=== PATIENT | male | born 1970 | race Caucasian/White ===

== ENCOUNTER 2021-10-18 14:04 | Inpatient (IN) | payer MEDICAID, OTHER ==
[~2021-10-18] VITALS: Ht 162.6 cm; Wt 73.0 kg
[2021-10-18 15:01] LABS: BASOPHILS % (AUTO) 0.9 % (0.0-2.0); EOSINOPHILS % (AUTO) 7.3 % (1.0-6.0); HEMATOCRIT 30.2 % (41-53); HEMOGLOBIN 10.4 g/dL (13.5-17.5); LYMPHOCYTES # (AUTO) 0.8 K/uL (1.0-4.8); LYMPHOCYTES % (AUTO) 11.3 % (22.0-44.0); MEAN CORPUSCULAR HEMOGLOBIN 35.3 pg (26.0-34.0); MEAN CORPUSCULAR HGB CONC 34.3 G/dL (31.0-37.0); MEAN CORPUSCULAR VOLUME 103 fL (80-100); MONOCYTES % (AUTO) 14.3 % (2.0-9.0); NEUTROPHILS # (AUTO) 4.6 K/uL (1.8-7.7); NEUTROPHILS % (AUTO) 66.2 % (40.0-70.0); PLATELET COUNT (AUTO) 188 K/uL (150-450); RED BLOOD CELL COUNT(AUTO) 2.94 MIL/uL (4.50-5.90)
[2021-10-18 15:09] LABS: ANION GAP 8 mmol/L (8-16); CALCIUM, TOTAL 9.8 mg/dL (8.8-10.5); CARBON DIOXIDE 34 mmol/L (22-29); CHLORIDE 99 mmol/L (98-107); GLOMERULAR FILTR. RATE CALC 15 mL/min (>60); GLUCOSE,RANDOM 113 mg/dL (70-110); POTASSIUM 4.1 mmol/L (3.5-5.1); SODIUM SERUM 141 mmol/L (136-145); UREA NITROGEN, BLOOD 14 mg/dL (7-18)
[2021-10-18 15:15] LABS: ALANINE AMINOTRANSFERASE 17 U/L (12-78); ALBUMIN 4.2 g/dL (3.4-5.0); ALKALINE PHOSPHATASE 140 U/L (46-116); ASPARTATE AMINOTRANSFERASE 25 U/L (15-37); TOTAL PROTEIN, SERUM 8.5 g/dL (6.4-8.2)
[2021-10-18 15:59] LABS: COVID AG,FIA SOURCE NASOPHARYNGEAL
[2021-10-18] MEDS: LORazepam 2 MG TABLET PO PRN ×2 (16:18→23:08)
[2021-10-18 18:35] LABS: APPEARANCE,URINE CLEAR (CLEAR); BILIRUBIN,URINE NEGATIVE (NEGATIVE); GLUCOSE, URINE (UA) 100 mg/dL (NEGATIVE); KETONES,URINE NEGATIVE (NEGATIVE); LEUKOCYTE ESTERASE ,URINE NEGATIVE (NEGATIVE); NITRATE,URINE NEGATIVE (NEGATIVE); OCCULT BLOOD,URINE TRACE (NEGATIVE); PROTEIN,URINE SEE CONFIRM (NEGATIVE); UROBILINOGEN,URINE 0.2 mg/dL (<=1.0)
[2021-10-18 18:40] LABS: AMPHET/METH SCREEN,URINE NEGATIVE (NEGATIVE); BARBITURATE SCREEN, URINE NEGATIVE (NEGATIVE); BENZODIAZEPINES SCREEN,URINE NEGATIVE (NEGATIVE); CANNABINOID SCREEN,URINE POSITIVE (NEGATIVE); COCAINE SCREEN,URINE NEGATIVE (NEGATIVE); METHADONE SCREEN, URINE NEGATIVE (NEGATIVE); OPIATE SCREEN,URINE NEGATIVE (NEGATIVE)
[2021-10-18 18:41] LABS: PHENCYCLIDINE SCREEN,URINE NEGATIVE (NEGATIVE)
[2021-10-18 18:45] VITALS: BP 168/94
[2021-10-18 19:02] LABS: SULFOSALICYLIC ACID,URINE 4+ (Negative)
[2021-10-18 19:03] LABS: BACTERIA,URINE None Seen /HPF (None Seen); RBC,URINE 0-2 /HPF (0-2); WBC,URINE 0-2 /HPF (0-5)
[2021-10-19 05:32] LABS: GLUCOMETER DEV NAME(LOC) 3EX.; GLUCOSE,POINT OF CARE 115 MG/DL (70-110)
[2021-10-19] MEDS: CALCIUM ACETATE 667 MG CAPSULE PO SCH ×3 (06:58→16:29)
[2021-10-19] MEDS: AmLODIPine BESYLATE 10 MG TABLET PO SCH (09:11)
[2021-10-19] MEDS: VITAMIN B COMP/VIT C/FOLIC ACID CAPSULE PO SCH (09:12)
[2021-10-19] MEDS: ASPIRIN 81 MG DR TABLET PO SCH (09:12)
[2021-10-19] MEDS: FUROSEMIDE 80 MG TABLET PO SCH (09:13)
[2021-10-19] MEDS: LOSARTAN POTASSIUM 50 MG TABLET PO SCH (09:13)
[2021-10-19] MEDS ORDERED: GuaiFENesin/D-METHORPHAN [SUGAR-FREE] 200-20MG/10 ML SYRUP UDCUP PO PRN (10:45)
[2021-10-19] MEDS ORDERED: DOCUSATE SODIUM 100 MG CAPSULE PO PRN (10:45)
[2021-10-19] MEDS ORDERED: MAG HYDROX/AL HYDROX/SIMETH ES 30 ML SUSPENSION UDCUP PO PRN (10:45)
[2021-10-19] MEDS ORDERED: ONDANSETRON HCL 4 MG TABLET PO PRN (10:45)
[2021-10-19] MEDS ORDERED: NICOTINE 14 MG/24 HOUR PATCH TD PRN (10:45)
[2021-10-19] MEDS ORDERED: LOPERAMIDE HCL 2 MG CAPSULE PO PRN (10:45)
[2021-10-19] MEDS ORDERED: IBUPROFEN 400 MG TABLET PO PRN (10:45)
[2021-10-19] MEDS ORDERED: MAGNESIUM HYDROXIDE SUSPENSION 30 ML UDCUP PO PRN (10:45)
[2021-10-19] MEDS ORDERED: PETROLATUM,WHITE 28 GM JELLY TP PRN (10:45)
[2021-10-19] MEDS ORDERED: CloNIDine HCL 0.1 MG TABLET PO PRN (10:45)
[2021-10-19 13:47] VITALS: BP 172/105
[2021-10-19 16:27] VITALS: BP 163/95
[2021-10-19 16:51] LABS: GLUCOMETER DEV NAME(LOC) 3EX.; GLUCOSE,POINT OF CARE 151 MG/DL (70-110)
[2021-10-19] MEDS: ZOLPIDEM TARTRATE 10 MG TABLET PO PRN (20:32)
[2021-10-19] MEDS: MIRTAZAPINE 15 MG TABLET PO SCH (20:32)
[2021-10-20] VITALS (14 sets, daily range): BP systolic 155–178; BP diastolic 80–114
[2021-10-20 05:31] LABS: GLUCOMETER DEV NAME(LOC) 3EX.; GLUCOSE,POINT OF CARE 113 MG/DL (70-110)
[2021-10-20] MEDS: CALCIUM ACETATE 667 MG CAPSULE PO SCH ×3 (06:36→19:51)
[2021-10-20] MEDS: LOSARTAN POTASSIUM 50 MG TABLET PO SCH (08:50)
[2021-10-20] MEDS: VITAMIN B COMP/VIT C/FOLIC ACID CAPSULE PO SCH (08:50)
[2021-10-20] MEDS: AmLODIPine BESYLATE 10 MG TABLET PO SCH (08:51)
[2021-10-20] MEDS: FUROSEMIDE 80 MG TABLET PO SCH (08:51)
[2021-10-20] MEDS: ASPIRIN 81 MG DR TABLET PO SCH (08:51)
[2021-10-20] MEDS: MIRTAZAPINE 15 MG TABLET PO SCH (20:08)
[2021-10-21] MEDS: ZOLPIDEM TARTRATE 10 MG TABLET PO PRN ×2 (00:04→22:14)
[2021-10-21 06:31] LABS: GLUCOMETER DEV NAME(LOC) 3EX.; GLUCOSE,POINT OF CARE 106 MG/DL (70-110)
[2021-10-21] MEDS: CALCIUM ACETATE 667 MG CAPSULE PO SCH ×3 (06:33→16:15)
[2021-10-21] MEDS: FUROSEMIDE 80 MG TABLET PO SCH (08:46)
[2021-10-21] MEDS: AmLODIPine BESYLATE 10 MG TABLET PO SCH (08:46)
[2021-10-21] MEDS: ASPIRIN 81 MG DR TABLET PO SCH (08:46)
[2021-10-21] MEDS: VITAMIN B COMP/VIT C/FOLIC ACID CAPSULE PO SCH (08:46)
[2021-10-21] MEDS: LOSARTAN POTASSIUM 50 MG TABLET PO SCH (08:47)
[2021-10-21 10:19] VITALS: BP 160/86
[2021-10-21 16:00] VITALS: BP 163/93
[2021-10-21 16:46] LABS: GLUCOMETER DEV NAME(LOC) 3EX.; GLUCOSE,POINT OF CARE 146 MG/DL (70-110)
[2021-10-21] MEDS: MIRTAZAPINE 15 MG TABLET PO SCH (20:03)
[2021-10-22] MEDS: LORazepam 2 MG TABLET PO PRN (02:13)
[2021-10-22 02:15] VITALS: BP 155/82
[2021-10-22 06:11] LABS: GLUCOMETER DEV NAME(LOC) 3EX.; GLUCOSE,POINT OF CARE 117 MG/DL (70-110)
[2021-10-22] MEDS: CALCIUM ACETATE 667 MG CAPSULE PO SCH ×3 (06:30→16:32)
[2021-10-22 08:35] LABS: BASOPHILS % (AUTO) 1.2 % (0.0-2.0); HEMATOCRIT 28.6 % (41-53); HEMOGLOBIN 9.9 g/dL (13.5-17.5); LYMPHOCYTES # (AUTO) 0.8 K/uL (1.0-4.8); LYMPHOCYTES % (AUTO) 12.7 % (22.0-44.0); MEAN CORPUSCULAR HGB CONC 34.7 G/dL (31.0-37.0); MEAN CORPUSCULAR VOLUME 104 fL (80-100); MONOCYTES # (AUTO) 0.8 K/uL (0.1-1.0); MONOCYTES % (AUTO) 12.3 % (2.0-9.0); NEUTROPHILS # (AUTO) 3.8 K/uL (1.8-7.7); NEUTROPHILS % (AUTO) 59.8 % (40.0-70.0); PLATELET COUNT (AUTO) 207 K/uL (150-450); RED BLOOD CELL COUNT(AUTO) 2.75 MIL/uL (4.50-5.90); RED CELL DISTRIBUTION WIDTH 13.8 % (11.5-14.5)
[2021-10-22 08:47] LABS: CALCIUM, TOTAL 9.9 mg/dL (8.8-10.5); CREATININE 7.75 mg/dL (0.60-1.30); MAGNESIUM 2.4 mg/dL (1.80-2.40); PHOSPHORUS 5.3 mg/dL (2.5-4.9); POTASSIUM 5.6 mmol/L (3.5-5.1)
[2021-10-22] MEDS: LOSARTAN POTASSIUM 50 MG TABLET PO SCH (09:16)
[2021-10-22] MEDS: AmLODIPine BESYLATE 10 MG TABLET PO SCH (09:16)
[2021-10-22] MEDS: ASPIRIN 81 MG DR TABLET PO SCH (09:16)
[2021-10-22] MEDS: FUROSEMIDE 80 MG TABLET PO SCH (09:16)
[2021-10-22] MEDS: VITAMIN B COMP/VIT C/FOLIC ACID CAPSULE PO SCH (09:16)
[2021-10-22] MEDS: EPOETIN ALFA 10,000 UNITS/ML 2 ML VIAL SQ SCH (09:21)
[2021-10-22 10:25] VITALS: BP 182/115
[2021-10-22 10:46] VITALS: BP 177/96
[2021-10-22 11:22] VITALS: BP 182/115
[2021-10-22 16:00] VITALS: BP 148/93
[2021-10-22 16:46] LABS: GLUCOMETER DEV NAME(LOC) 3EX.; GLUCOSE,POINT OF CARE 207 MG/DL (70-110)
[2021-10-22] MEDS: MIRTAZAPINE 15 MG TABLET PO SCH (20:12)
[2021-10-22] MEDS: ZOLPIDEM TARTRATE 10 MG TABLET PO PRN (20:47)
[2021-10-23] MEDS: LORazepam 2 MG TABLET PO PRN (01:06)
[2021-10-23 01:20] VITALS: BP 158/92
[2021-10-23 06:07] LABS: GLUCOMETER DEV NAME(LOC) 3EX.; GLUCOSE,POINT OF CARE 113 MG/DL (70-110)
[2021-10-23] MEDS: CALCIUM ACETATE 667 MG CAPSULE PO SCH ×3 (06:30→17:21)
[2021-10-23] MEDS: AmLODIPine BESYLATE 10 MG TABLET PO SCH (09:21)
[2021-10-23] MEDS: FUROSEMIDE 80 MG TABLET PO SCH (09:21)
[2021-10-23] MEDS: ASPIRIN 81 MG DR TABLET PO SCH (09:21)
[2021-10-23] MEDS: LOSARTAN POTASSIUM 50 MG TABLET PO SCH (09:21)
[2021-10-23] MEDS: VITAMIN B COMP/VIT C/FOLIC ACID CAPSULE PO SCH (09:22)
[2021-10-23 10:14] VITALS: BP 166/89
[2021-10-23 16:24] VITALS: BP 141/75
[2021-10-23 16:56] LABS: GLUCOMETER DEV NAME(LOC) 3EX.; GLUCOSE,POINT OF CARE 104 MG/DL (70-110)
[2021-10-23] MEDS: ZOLPIDEM TARTRATE 10 MG TABLET PO PRN (21:04)
[2021-10-23] MEDS: MIRTAZAPINE 15 MG TABLET PO SCH (21:04)
[2021-10-24] VITALS (13 sets, daily range): BP systolic 121–175; BP diastolic 79–108
[2021-10-24] MEDS: LORazepam 2 MG TABLET PO PRN (01:23)
[2021-10-24] MEDS: ALBUTEROL SULFATE HFA 90 MCG/PUFF 8 GM INHALER IH PRN (06:24)
[2021-10-24 06:37] LABS: GLUCOMETER DEV NAME(LOC) 3EX.; GLUCOSE,POINT OF CARE 133 MG/DL (70-110)
[2021-10-24] MEDS: CALCIUM ACETATE 667 MG CAPSULE PO SCH ×3 (06:42→17:19)
[2021-10-24] MEDS: FUROSEMIDE 80 MG TABLET PO SCH ×2 (08:41→17:20)
[2021-10-24] MEDS: VITAMIN B COMP/VIT C/FOLIC ACID CAPSULE PO SCH (08:41)
[2021-10-24] MEDS: LOSARTAN POTASSIUM 50 MG TABLET PO SCH (08:42)
[2021-10-24] MEDS: AmLODIPine BESYLATE 10 MG TABLET PO SCH (08:42)
[2021-10-24] MEDS: ASPIRIN 81 MG DR TABLET PO SCH (08:42)
[2021-10-24 09:24] LABS: BASOPHILS % (AUTO) 1.1 % (0.0-2.0); EOSINOPHILS % (AUTO) 11.6 % (1.0-6.0); HEMATOCRIT 29.3 % (41-53); LYMPHOCYTES # (AUTO) 0.9 K/uL (1.0-4.8); LYMPHOCYTES % (AUTO) 13.6 % (22.0-44.0); MEAN CORPUSCULAR HEMOGLOBIN 35.3 pg (26.0-34.0); MEAN CORPUSCULAR HGB CONC 34.2 G/dL (31.0-37.0); MEAN CORPUSCULAR VOLUME 103 fL (80-100); MONOCYTES # (AUTO) 0.8 K/uL (0.1-1.0); MONOCYTES % (AUTO) 11.8 % (2.0-9.0); NEUTROPHILS # (AUTO) 4.1 K/uL (1.8-7.7); NEUTROPHILS % (AUTO) 61.9 % (40.0-70.0); PLATELET COUNT (AUTO) 208 K/uL (150-450); RED BLOOD CELL COUNT(AUTO) 2.84 MIL/uL (4.50-5.90); RED CELL DISTRIBUTION WIDTH 14.1 % (11.5-14.5)
[2021-10-24 09:33] LABS: CALCIUM, TOTAL 10.3 mg/dL (8.8-10.5); CREATININE 7.15 mg/dL (0.60-1.30); MAGNESIUM 2.5 mg/dL (1.80-2.40); PHOSPHORUS 4.5 mg/dL (2.5-4.9); POTASSIUM 4.8 mmol/L (3.5-5.1)
[2021-10-24] MEDS: EPOETIN ALFA 10,000 UNITS/ML 2 ML VIAL SQ SCH (14:29)
[2021-10-24 17:01] LABS: GLUCOMETER DEV NAME(LOC) 3EX.; GLUCOSE,POINT OF CARE 85 MG/DL (70-110)
[2021-10-24] MEDS: MIRTAZAPINE 15 MG TABLET PO SCH (21:14)
[2021-10-24] MEDS: ZOLPIDEM TARTRATE 10 MG TABLET PO PRN (21:14)
[2021-10-24 23:47] LABS: COVID AG,FIA SOURCE NASAL SWAB
[2021-10-25 01:45] VITALS: BP 150/81
[2021-10-25] MEDS: LORazepam 2 MG TABLET PO PRN (01:58)
[2021-10-25] MEDS: ALBUTEROL SULFATE HFA 90 MCG/PUFF 8 GM INHALER IH PRN (04:40)
[2021-10-25 05:31] LABS: GLUCOMETER DEV NAME(LOC) 3EX.; GLUCOSE,POINT OF CARE 108 MG/DL (70-110)
[2021-10-25] MEDS: CALCIUM ACETATE 667 MG CAPSULE PO SCH ×3 (07:05→17:05)
[2021-10-25] MEDS: ASPIRIN 81 MG DR TABLET PO SCH (09:15)
[2021-10-25] MEDS: AmLODIPine BESYLATE 10 MG TABLET PO SCH (09:15)
[2021-10-25] MEDS: VITAMIN B COMP/VIT C/FOLIC ACID CAPSULE PO SCH (09:15)
[2021-10-25] MEDS: FUROSEMIDE 80 MG TABLET PO SCH ×2 (09:15→17:05)
[2021-10-25] MEDS: LOSARTAN POTASSIUM 50 MG TABLET PO SCH (09:15)
[2021-10-25 12:32] VITALS: BP 190/113
[2021-10-25 12:51] VITALS: BP 190/113
[2021-10-25 16:31] LABS: GLUCOMETER DEV NAME(LOC) 3EX.; GLUCOSE,POINT OF CARE 141 MG/DL (70-110)
[2021-10-25 17:46] VITALS: BP 165/91
[2021-10-25] MEDS: MIRTAZAPINE 30 MG TABLET PO SCH (20:38)
[2021-10-25] MEDS: ZOLPIDEM TARTRATE 10 MG TABLET PO PRN (20:38)
[2021-10-26] VITALS (12 sets, daily range): BP systolic 147–179; BP diastolic 82–108
[2021-10-26] MEDS: LORazepam 2 MG TABLET PO PRN ×2 (00:11→22:49)
[2021-10-26] MEDS: ALBUTEROL SULFATE HFA 90 MCG/PUFF 8 GM INHALER IH PRN ×2 (02:50→22:55)
[2021-10-26 06:16] LABS: GLUCOMETER DEV NAME(LOC) 3EX.; GLUCOSE,POINT OF CARE 114 MG/DL (70-110)
[2021-10-26] MEDS: CALCIUM ACETATE 667 MG CAPSULE PO SCH ×3 (06:45→17:03)
[2021-10-26] MEDS: FUROSEMIDE 80 MG TABLET PO SCH ×2 (08:29→17:03)
[2021-10-26] MEDS: AmLODIPine BESYLATE 10 MG TABLET PO SCH (08:29)
[2021-10-26] MEDS: ASPIRIN 81 MG DR TABLET PO SCH (08:29)
[2021-10-26] MEDS: VITAMIN B COMP/VIT C/FOLIC ACID CAPSULE PO SCH (08:29)
[2021-10-26] MEDS: LOSARTAN POTASSIUM 50 MG TABLET PO SCH (08:29)
[2021-10-26] MEDS: EPOETIN ALFA 10,000 UNITS/ML 2 ML VIAL SQ SCH (09:00)
[2021-10-26 16:47] LABS: GLUCOMETER DEV NAME(LOC) 3EX.; GLUCOSE,POINT OF CARE 160 MG/DL (70-110)
[2021-10-26] MEDS: MIRTAZAPINE 30 MG TABLET PO SCH (20:35)
[2021-10-26] MEDS: ZOLPIDEM TARTRATE 10 MG TABLET PO PRN (20:35)
[2021-10-27] VITALS (13 sets, daily range): BP systolic 147–173; BP diastolic 83–108
[2021-10-27] MEDS ORDERED: ALBUTEROL SULFATE 2.5 MG/0.5 ML NEB SOLUTION NEB PRN (00:45)
[2021-10-27] MEDS ORDERED: IPRATROPIUM BROMIDE 0.5 MG/2.5 ML NEB SOLUTION NEB SCH (02:00)
[2021-10-27] MEDS ORDERED: IPRATROPIUM BROMIDE 0.5 MG/2.5 ML NEB SOLUTION NEB PRN (06:00)
[2021-10-27 06:31] LABS: GLUCOMETER DEV NAME(LOC) 3EX.; GLUCOSE,POINT OF CARE 108 MG/DL (70-110)
[2021-10-27 06:57] LABS: BASOPHILS % (AUTO) 1.4 % (0.0-2.0); EOSINOPHILS % (AUTO) 9.9 % (1.0-6.0); HEMATOCRIT 26.5 % (41-53); HEMOGLOBIN 9.2 g/dL (13.5-17.5); LYMPHOCYTES # (AUTO) 0.8 K/uL (1.0-4.8); LYMPHOCYTES % (AUTO) 13.8 % (22.0-44.0); MEAN CORPUSCULAR HEMOGLOBIN 35.9 pg (26.0-34.0); MEAN CORPUSCULAR HGB CONC 34.6 G/dL (31.0-37.0); MEAN CORPUSCULAR VOLUME 104 fL (80-100); MONOCYTES # (AUTO) 0.8 K/uL (0.1-1.0); MONOCYTES % (AUTO) 13.8 % (2.0-9.0); NEUTROPHILS # (AUTO) 3.6 K/uL (1.8-7.7); NEUTROPHILS % (AUTO) 61.1 % (40.0-70.0); PLATELET COUNT (AUTO) 207 K/uL (150-450); RED BLOOD CELL COUNT(AUTO) 2.55 MIL/uL (4.50-5.90); RED CELL DISTRIBUTION WIDTH 14.2 % (11.5-14.5)
[2021-10-27] MEDS: CALCIUM ACETATE 667 MG CAPSULE PO SCH ×3 (06:59→16:57)
[2021-10-27 07:07] LABS: CALCIUM, TOTAL 9.6 mg/dL (8.8-10.5); CREATININE 5.76 mg/dL (0.60-1.30); MAGNESIUM 2.3 mg/dL (1.80-2.40); POTASSIUM 4.6 mmol/L (3.5-5.1)
[2021-10-27] MEDS: LOSARTAN POTASSIUM 50 MG TABLET PO SCH (08:59)
[2021-10-27] MEDS: ASPIRIN 81 MG DR TABLET PO SCH (08:59)
[2021-10-27] MEDS: FUROSEMIDE 80 MG TABLET PO SCH ×2 (08:59→16:57)
[2021-10-27] MEDS: AmLODIPine BESYLATE 10 MG TABLET PO SCH (08:59)
[2021-10-27] MEDS: VITAMIN B COMP/VIT C/FOLIC ACID CAPSULE PO SCH (08:59)
[2021-10-27] MEDS: ALBUTEROL SULFATE HFA 90 MCG/PUFF 8 GM INHALER IH PRN (09:40)
[2021-10-27 16:56] LABS: GLUCOMETER DEV NAME(LOC) 3EX.; GLUCOSE,POINT OF CARE 104 MG/DL (70-110)
[2021-10-27] MEDS: MIRTAZAPINE 30 MG TABLET PO SCH (20:31)
[2021-10-27] MEDS: HALOPERIDOL 5 MG TABLET PO PRN (20:31)
[2021-10-27] MEDS: LORazepam 2 MG TABLET PO PRN (20:31)
[2021-10-27] MEDS: TraMADol HCL 50 MG TABLET PO PRN (20:35)
[2021-10-27] MEDS: ZOLPIDEM TARTRATE 10 MG TABLET PO PRN (21:37)
[2021-10-28 00:37] VITALS: BP 158/85
[2021-10-28 06:21] LABS: GLUCOMETER DEV NAME(LOC) 3EX.; GLUCOSE,POINT OF CARE 116 MG/DL (70-110)
[2021-10-28] MEDS: CALCIUM ACETATE 667 MG CAPSULE PO SCH ×3 (06:32→17:14)
[2021-10-28 08:00] VITALS: BP 160/80
[2021-10-28] MEDS: ASPIRIN 81 MG DR TABLET PO SCH (08:15)
[2021-10-28] MEDS: VITAMIN B COMP/VIT C/FOLIC ACID CAPSULE PO SCH (08:15)
[2021-10-28] MEDS: FUROSEMIDE 80 MG TABLET PO SCH ×2 (08:15→17:14)
[2021-10-28] MEDS: AmLODIPine BESYLATE 10 MG TABLET PO SCH (08:15)
[2021-10-28] MEDS: LOSARTAN POTASSIUM 50 MG TABLET PO SCH (08:16)
[2021-10-28] MEDS ORDERED: FUROSEMIDE 80 MG TABLET PO SCH (09:00)
[2021-10-28 11:33] LABS: COVID AG,FIA SOURCE NASOPHARYNGEAL
[2021-10-28 16:49] VITALS: BP 141/85
[2021-10-28 17:11] LABS: GLUCOMETER DEV NAME(LOC) 3EX.; GLUCOSE,POINT OF CARE 132 MG/DL (70-110)
[2021-10-28] MEDS: MIRTAZAPINE 30 MG TABLET PO SCH (20:26)
[2021-10-28] MEDS: ZOLPIDEM TARTRATE 10 MG TABLET PO PRN (20:26)
[2021-10-28 22:25] VITALS: BP 147/84
[2021-10-28] MEDS: LORazepam 2 MG TABLET PO PRN (22:38)
[2021-10-28] MEDS: HALOPERIDOL 5 MG TABLET PO PRN (22:38)
[2021-10-29] VITALS (14 sets, daily range): BP systolic 138–176; BP diastolic 74–98
[2021-10-29] MEDS: TraMADol HCL 50 MG TABLET PO PRN ×2 (01:04→21:55)
[2021-10-29 06:21] LABS: GLUCOMETER DEV NAME(LOC) 3EX.; GLUCOSE,POINT OF CARE 119 MG/DL (70-110)
[2021-10-29] MEDS: CALCIUM ACETATE 667 MG CAPSULE PO SCH ×3 (06:32→20:47)
[2021-10-29] MEDS: FUROSEMIDE 80 MG TABLET PO SCH ×2 (08:36→20:47)
[2021-10-29] MEDS: ASPIRIN 81 MG DR TABLET PO SCH (08:39)
[2021-10-29] MEDS: LOSARTAN POTASSIUM 50 MG TABLET PO SCH (08:41)
[2021-10-29] MEDS: VITAMIN B COMP/VIT C/FOLIC ACID CAPSULE PO SCH (08:41)
[2021-10-29] MEDS: AmLODIPine BESYLATE 10 MG TABLET PO SCH (12:50)
[2021-10-29 16:36] LABS: GLUCOMETER DEV NAME(LOC) 3EX.; GLUCOSE,POINT OF CARE 152 MG/DL (70-110)
[2021-10-29] MEDS: MIRTAZAPINE 30 MG TABLET PO SCH (20:47)
[2021-10-29] MEDS: EPOETIN ALFA 10,000 UNITS/ML 2 ML VIAL SQ SCH (21:18)
[2021-10-30 06:27] LABS: GLUCOMETER DEV NAME(LOC) 3EX.; GLUCOSE,POINT OF CARE 100 MG/DL (70-110)
[2021-10-30] MEDS: CALCIUM ACETATE 667 MG CAPSULE PO SCH ×3 (06:36→16:50)
[2021-10-30 08:05] VITALS: BP 153/83
[2021-10-30] MEDS: ASPIRIN 81 MG DR TABLET PO SCH (08:49)
[2021-10-30] MEDS: FUROSEMIDE 80 MG TABLET PO SCH ×2 (08:50→16:50)
[2021-10-30] MEDS: LOSARTAN POTASSIUM 50 MG TABLET PO SCH (08:50)
[2021-10-30] MEDS: VITAMIN B COMP/VIT C/FOLIC ACID CAPSULE PO SCH (08:50)
[2021-10-30] MEDS: AmLODIPine BESYLATE 10 MG TABLET PO SCH (08:50)
[2021-10-30 17:01] LABS: GLUCOMETER DEV NAME(LOC) 3EX.; GLUCOSE,POINT OF CARE 107 MG/DL (70-110)
[2021-10-30 17:07] VITALS: BP 162/95
[2021-10-30] MEDS: MIRTAZAPINE 30 MG TABLET PO SCH (20:23)
[2021-10-31] VITALS (12 sets, daily range): BP systolic 150–174; BP diastolic 78–108
[2021-10-31] MEDS: CALCIUM ACETATE 667 MG CAPSULE PO SCH ×2 (06:30→14:02)
[2021-10-31 06:36] LABS: GLUCOMETER DEV NAME(LOC) 3EX.; GLUCOSE,POINT OF CARE 112 MG/DL (70-110)
[2021-10-31] MEDS: ASPIRIN 81 MG DR TABLET PO SCH (08:25)
[2021-10-31] MEDS: AmLODIPine BESYLATE 10 MG TABLET PO SCH (08:25)
[2021-10-31] MEDS: VITAMIN B COMP/VIT C/FOLIC ACID CAPSULE PO SCH (08:25)
[2021-10-31] MEDS: LOSARTAN POTASSIUM 50 MG TABLET PO SCH (08:25)
[2021-10-31] MEDS: FUROSEMIDE 80 MG TABLET PO SCH (08:25)
[2021-10-31] MEDS ORDERED: MIRT30 PO (09:38)
[2021-10-31] MEDS: EPOETIN ALFA 10,000 UNITS/ML 2 ML VIAL SQ SCH (13:00)
[2021-10-31] MEDS ORDERED: AMLO-258 PO (14:47)
[2021-10-31] MEDS ORDERED: EPOE10003 SQ (14:47)
[2021-10-31] MEDS ORDERED: ASPI-1450 PO (14:47)
[2021-10-31] MEDS ORDERED: PHOSLOC PO (14:47)
[2021-10-31] MEDS ORDERED: FURO80 PO (14:47)
[2021-10-31] MEDS ORDERED: B CO1CAP6 PO (14:47)
[2021-10-31] MEDS ORDERED: LOSA-382 PO (14:47)
== END 2021-10-31 15:50 | disposition home or self-care (01) | DRG 751 ==
LOC: EMS 14:12 → 3EI 18:29
PROVIDERS: ADMIT Psychiatry & Neurology Psychiatry; ATTEND Psychiatry & Neurology Psychiatry
DX: F33.2 Major depressive disorder, recurrent severe without psychotic features (principal); Z76.82 Awaiting organ transplant status; I12.0 Hypertensive chronic kidney disease with stage 5 chronic kidney disease or end stage renal disease; D63.1 Anemia in chronic kidney disease; N18.6 End stage renal disease; E11.22 Type 2 diabetes mellitus with diabetic chronic kidney disease; E78.5 Hyperlipidemia, unspecified; R45.851 Suicidal ideations; F12.10 Cannabis abuse, uncomplicated; Z79.899 Other long term (current) drug therapy; Z59.00 Homelessness unspecified; K76.9 Liver disease, unspecified; Z99.2 Dependence on renal dialysis; Z87.891 Personal history of nicotine dependence; Z88.8 Allergy status to other drugs, medicaments and biological substances
CPT/HCPCS: 80048; 80053; 81001; 81002; 82962; 83036; 83735; 84100; 85025; 87340; 90935; 99285; G0480; J0885; J3535